=== PATIENT | female | born 1980 ===

== ENCOUNTER 2018-02-28 10:12 | Outpatient (CLI) | payer BC | END 2018-02-28 10:13 | disposition home or self-care (01) | LOC: BICMAMMO 10:12 | PROVIDERS: ATTEND Family Medicine | DX: M06.9 Rheumatoid arthritis, unspecified (principal); R93.7 Abnormal findings on diagnostic imaging of other parts of musculoskeletal system; M85.89 Other specified disorders of bone density and structure, multiple sites; Z92.25 Personal history of immunosuppression therapy | CPT/HCPCS: 77080 ==